=== PATIENT | female | born 1980 | race African-American/Black ===

== ENCOUNTER 2018-11-02 21:19 | Emergency (ER) | payer SELFPAY ==
[~2018-11-02] VITALS: Ht 154.9 cm; Wt 77.0 kg
[2018-11-03 00:37] LABS: BASOPHILS % 0.6 % (0.0-2.0); HEMATOCRIT. 32.3 % (36.0-48.0); HEMOGLOBIN. 11.3 g/dL (12.0-16.0); LYMPHOCYTES % 33.7 % (20.0-50.0); MEAN CORPUSCULAR HEMOGLOBIN 26.7 pg (28.0-32.0); MEAN CORPUSCULAR VOLUME 76.8 fL (81.0-99.0); MONOCYTES % 6.3 % (2.0-8.0); NEUTROPHILS % 52.4 % (40.0-76.0); PLATELET 323 x1000/uL (130-400); RED BLOOD CELL COUNT 4.21 mill/uL (4.2-5.4); RED CELL DISTRIBUTION WIDTH 16.4 % (11.6-14.6)
[2018-11-03 00:43] LABS: CHLORIDE 109 mEq/L (98-107)
[2018-11-03] MEDS ORDERED: IBUPROFEN 600MG TABLET PO ONE (02:00)
[2018-11-03] MEDS ORDERED: METHOCARBAMOL 500MG TABLET PO ONE (02:00)
[2018-11-03 03:15] VITALS: BP 98/64
== END 2018-11-03 03:23 | disposition home or self-care (01) ==
LOC: ER 21:19
DX: M94.0 Chondrocostal junction syndrome [Tietze] (principal); Z98.890 Other specified postprocedural states
CPT/HCPCS: 36415; 71045; 81025; 84484; 85379; 93005; 99284

== ENCOUNTER 2019-06-10 21:22 | Emergency (ER) | payer MEDICAID ==
[~2019-06-10] VITALS: Ht 154.9 cm; Wt 79.0 kg
[2019-06-11] MEDS ORDERED: IBUPROFEN 600MG TABLET PO STA (01:06)
[2019-06-11 02:51] VITALS: BP 115/65
== END 2019-06-11 02:52 | disposition home or self-care (01) ==
LOC: ER 21:22
DX: J31.0 Chronic rhinitis (principal); J11.1 Influenza due to unidentified influenza virus with other respiratory manifestations
CPT/HCPCS: 81025; 87804; 99283

== ENCOUNTER 2021-06-03 21:24 | Emergency (ER) | payer MEDICAID ==
[~2021-06-03] VITALS: Ht 154.9 cm; Wt 80.0 kg
[2021-06-03 22:00] VITALS: BP 112/68
== END 2021-06-03 22:25 | disposition home or self-care (01) ==
LOC: ER 21:24
DX: B34.9 Viral infection, unspecified (principal); Z20.822 Contact with and (suspected) exposure to COVID-19; Z98.890 Other specified postprocedural states; Z98.51 Tubal ligation status
CPT/HCPCS: 99283; C9803; U0003; U0005